=== PATIENT | male | born 1965 | race Caucasian/White ===

== ENCOUNTER 2018-12-20 12:12 | Day surgery (SDC) | payer OTHER ==
[2018-12-20] MEDS ORDERED: FENTAnyl 50 MCG/ML VIAL (14:21)
[2018-12-20] MEDS ORDERED: MIDAZOLAM 1 MG/ML 2 ML INJ ×2 (14:21)
== END 2018-12-20 15:09 | disposition home or self-care (01) ==
LOC: GIL 12:12
DX: Z12.11 Encounter for screening for malignant neoplasm of colon (principal); K57.30 Diverticulosis of large intestine without perforation or abscess without bleeding
CPT/HCPCS: 45378